=== PATIENT | male | born 1950 | race Caucasian/White ===

== ENCOUNTER → 2016-10-08 | Outpatient (CLI) | payer OTHER ==
[~2016-10-08] MED LIST: IOPAMIDOL (ISOVUE 370) 100 ML BTL IV ONE
== END ==
LOC: CIMAGING 12:16
PROVIDERS: ATTEND Internal Medicine Gastroenterology
DX: N13.30 Unspecified hydronephrosis (principal); N13.4 Hydroureter; N32.89 Other specified disorders of bladder; I70.0 Atherosclerosis of aorta
CPT/HCPCS: 74177; Q9967

== ENCOUNTER 2016-10-09 08:50 | Emergency (ER) | payer OTHER ==
[2016-10-09 09:09] VITALS: BP 156/81; PULSE 96; RESP 18; TEMP 98.4; O2SAT 96
--- NOTE | 2016-10-09 09:15 | CPEKG ---
Heart Rate: 96 RR Interval: 625 P-R Interval: 172 QRSD Interval: 74 QT Interval: 328 QTC Interval: 415 P Fisk: 27 QRS Fisk: -20 T Wave Fisk: 56 EKG Severity - OTHERWISE NORMAL ECG - EKG Impression: SINUS RHYTHM EKG Impression: BORDERLINE LEFT AXIS DEVIATION Electronically Signed By: Juan Ruff 09-Oct-2016 09:20:12
--- NOTE | 2016-10-09 09:17 | UCPHY ---
H & P Patient Type: New Chief Complaint Nursing Narrative: high potassium level in yesterdays outpatient lab draw, denies other complaints. Time Seen by Provider: 10/09/16 09:07 HPI/ROS: CHIEF COMPLAINT: Hyperkalemia HISTORY OF PRESENT ILLNESS: Patient is a 66-year-old man with a history of diabetes and smoking who had outpatient labs done yesterday and his potassium returned at 6.0. Was told to come and have them recheck today at the urgent care. He is otherwise without complaint. He is being worked up by his primary doctor Marco Antonio as well as a gastrologist Dr. Fajardo because of his decreased appetite and weight loss of 50 lb over the last year. He has not had a fever. He has not had any vomiting or diarrhea. He has not feel ill but simply does not have an appetite. He also had a CT scan performed yesterday that he does not know the results. REVIEW OF SYSTEMS: Constitutional: denies: chills, fever, recent illness, recent injury EENTM: denies: blurred vision, double vision, nose congestion Respiratory: denies: cough, shortness of breath Cardiac: denies: chest pain, irregular heart rate, lightheadedness, palpitations Gastrointestinal/Abdominal: denies: abdominal pain, diarrhea, nausea, vomiting, blood streaked stools Genitourinary: denies: dysuria, frequency, hematuria, pain Musculoskeletal: denies: joint pain, muscle pain Skin: denies: lesions, rash, jaundice, bruising Neurological: denies: headache, numbness, paresthesia, tingling, dizziness, weakness Hematologic/Lymphatic: denies: blood clots, easy bleeding, easy bruising Immunologic/allergic: denies: HIV/AIDS, transplant EXAM: GENERAL: Well-appearing, well-nourished and in no acute distress. HEAD: Atraumatic, normocephalic. EYES: Pupils equal round and reactive to light, extraocular movements intact, sclera anicteric, conjunctiva are normal. ENT: TMs normal, nares patent, oropharynx clear without exudates. Moist mucous membranes. NECK: Normal range of motion, supple without lymphadenopathy or JVD. LUNGS: Breath sounds clear to auscultation bilaterally and equal. No wheezes rales or rhonchi. HEART: Regular rate and rhythm without murmurs, rubs or gallops. ABDOMEN: Soft, nontender, normoactive bowel sounds. No guarding, no rebound. No masses appreciated. BACK: No CVA tenderness, no spinal tenderness, step-offs or deformities EXTREMITIES: Normal range of motion, no pitting or edema. No clubbing or cyanosis. NEUROLOGICAL: Cranial nerves II through XII grossly intact. Normal speech, normal gait. 5/5 strength, normal movement in all extremities, normal sensation PSYCH: Normal mood, normal affect. SKIN: Warm, dry, normal turgor, no visible rashes or lesions. Source: Patient, Old records Exam Limitations: No limitations - Medical/Surgical History Hx Asthma: No Hx Chronic Respiratory Disease: No Hx Diabetes: Yes Hx Cardiac Disease: No Hx Renal Disease: No Hx Cirrhosis: No Other PMH: diabetes - Family History Significant Family History: Hypertension - Social History Smoking Status: Current every day smoker Alcohol Use: Sober Drug Use: None Constitutional: Initial Vital Signs Temperature (C) 36.9 C 10/09/16 09:07 Heart Rate 96 10/09/16 09:07 Respiratory Rate 18 10/09/16 09:07 Blood Pressure 156/81 H 10/09/16 09:07 O2 Sat (%) 96 10/09/16 09:07 O2 Delivery Mode Room Air Allergies/Adverse Reactions: No Known Allergies Allergy (Unverified 10/09/16 09:06) Home Medications: Medication Instructions Recorded Fish Oil 10/09/16 Flexeril 10/09/16 Glipizide 10/09/16 Lisinopril 10/09/16 Lovastatin 10/09/16 Magnesium 10/09/16 Metformin HCl 10/09/16 Protonix 10/09/16 traZODone 10/09/16 Medical Decision Making - Diagnostics EKG Interpretation: An EKG obtained and was read and documented in trace view. Please see trace view for full reading and report. Sinus rhythm, no acute ischemic changes or signs of right heart strain ED Course/Re-evaluation: I reviewed the patient's CT findings from yesterday. There were no significant masses or gastrointestinal abnormality seen. 10:00 a.m. the patient remains asymptomatic. His potassium is mildly elevated at 5.9. His renal function is improved. Yesterday. I have reviewed his medication list since suspect that the lisinopril may be causing his mild hyperkalemia. His EKG is reassuring. The patient's renal function has improved since yesterday. He does not have any evidence of ongoing process such of rhabdomyolysis or GI bleed. He does not have a anion gap acidosis. I have paged his primary care physician to discuss. 10:20 a.m. discussed the case with Dr. Laurita Bernard. We agreed to discontinue the patient's lisinopril and have him log his blood pressures until he follows up with her clinic later this week or next week. The patient remains asymptomatic. I discussed this with him and he agrees. We discussed indications for returning sooner. He will also hold his metformin for 2 days since receiving the CT scan. This is likely contributing to his elevated glucose today. Differential Diagnosis: Partial list of the Differential diagnosis considered include but were not limited to; hyperkalemia, acidosis, medication reaction, rhabdomyolysis, GI bleed arrhythmia , renal insufficiency and although unlikely based on the history and physical exam, I also considered severe hyperkalemia, cardiac arrest. I discussed these differential diagnoses and the plan with the patient as well as the usual and expected course. The patient understands that the diagnosis is provisional and that in medicine we are not always correct and that further workup is often warranted. Usual and customary warnings were given. All of the patient's questions were answered. The patient was instructed to return to the emergency department should the symptoms at all worsen or return, otherwise to followup with the physician as we discussed. - Data Points Laboratory Results: Laboratory Results 10/09/16 09:15 10/09/16 09:15 Sodium 133 mEq/L L mEq/L (134-144) Potassium 5.9 mEq/L H mEq/L (3.5-5.2) Chloride 100 mEq/L mEq/L (97-110) Carbon Dioxide 21 mEq/l L mEq/l (22-31) Anion Gap 12 mEq/L mEq/L (8-16) BUN 38 mg/dL H mg/dL (7-23) Creatinine 1.3 mg/dL mg/dL (0.7-1.3) Estimated GFR 55 Glucose 310 mg/dL H mg/dL (70-100) Calcium 9.5 mg/dL mg/dL (8.5-10.4) Departure - Departure Disposition: Home, Routine, Self-Care Clinical Impression: Hyperkalemia Condition: Fair Instructions: Hyperkalemia (ED) Additional Instructions: Stop taking your lisinopril. Log your blood pressures every morning evening until you follow up with Dr. Bernard's clinic Saturday or Saturday. Also continue to hold the metformin for 1 more day and then resume. Referrals: Laurita Bernard MD [Primary Care Provider] - As per Instructions - PQRS PQRS Measurement: 134: Depression screening and followup, PRIME MD-PHQ2 (12 years and older) Over the last 2 weeks, how often have you been bothered by any of the following problems? 1. Feeling down, depressed, or hopeless? 2. Little interest or pleasure in doing things? Patient answered no to both 1 and 2 130: Documentation of medications. Reviewed all patient medications, doses, route and frequency. 226: Do you smoke? Yes, counseled to stop 47: 65 and older: Advanced care planning. Patient designates surrogate decision maker as spouse . Patient has advanced directive. 51: 18 years old and older with diagnosis of COPD, spirometry performance. Spirometry not performed; equipment not available. 52: 18 years old and older with COPD and symptoms of COPD or FEV1<60% predicted prescribed a B Agonist. Not applicable
[2016-10-09 09:45] LABS: CALCIUM 9.5 mg/dL (8.5-10.4); CREATININE 1.3 mg/dL (0.7-1.3); POTASSIUM 5.9 mEq/L (3.5-5.2)
== END 2016-10-09 10:35 | disposition home or self-care (01) ==
LOC: CED 08:50
DX: E87.5 Hyperkalemia (principal); E11.9 Type 2 diabetes mellitus without complications; I10 Essential (primary) hypertension; F17.200 Nicotine dependence, unspecified, uncomplicated
CPT/HCPCS: 93005; G0463; 80048-PO; 93010-PO; 99204-PO

== ENCOUNTER → 2017-03-12 | Outpatient (CLI) | payer OTHER | LOC: CIMAGING 15:44 | PROVIDERS: ATTEND Family Medicine | DX: R29.898 Other symptoms and signs involving the musculoskeletal system (principal); W19.XXXA Unspecified fall, initial encounter; R63.4 Abnormal weight loss; R62.7 Adult failure to thrive; R26.9 Unspecified abnormalities of gait and mobility; R89.9 Unspecified abnormal finding in specimens from other organs, systems and tissues; M51.36 Other intervertebral disc degeneration, lumbar region | CPT/HCPCS: 72100-PO; 73502-PO ==

== ENCOUNTER → 2017-04-06 | Outpatient (CLI) | payer OTHER ==
[~2017-04-06] MED LIST changes: +GADOBUTROL 10 ML VIAL IVP ONE; -IOPAMIDOL (ISOVUE 370) 100 ML BTL IV ONE
== END ==
LOC: FIMAGING 12:02
PROVIDERS: ATTEND Family Medicine
DX: R26.9 Unspecified abnormalities of gait and mobility (principal); R29.898 Other symptoms and signs involving the musculoskeletal system; R63.4 Abnormal weight loss; M43.16 Spondylolisthesis, lumbar region; M89.38 Hypertrophy of bone, other site; N32.89 Other specified disorders of bladder; N13.30 Unspecified hydronephrosis
CPT/HCPCS: A9585